=== PATIENT | female | born 1990 | race Hispanic/Latino ===

== ENCOUNTER 2023-12-14 11:30 | Emergency (ER) | payer OTHER ==
[~2023-12-14] VITALS: Ht 152.4 cm; Wt 68.0 kg
[2023-12-14] VITALS (8 sets, daily range): BP systolic 85–128; BP diastolic 43–70
[2023-12-14] MEDS ORDERED: KETOROLAC TROMETHAMINE 30 MG/ML SDV IM ONE (12:35)
[2023-12-14] MEDS ORDERED: NAPROXEN500 MG PO (13:36)
== END 2023-12-14 15:06 | disposition home or self-care (01) | DRG 563 ==
LOC: ED 11:30
DX: S83.91XA Sprain of unspecified site of right knee, initial encounter (principal); W17.2XXA Fall into hole, initial encounter; Y92.89 Other specified places as the place of occurrence of the external cause; Y99.0 Civilian activity done for income or pay